=== PATIENT | female | born 1965 | race Caucasian/White ===

== ENCOUNTER 2021-03-26 09:51 | Outpatient (RCR) | payer OTHER, SELFPAY ==
--- NOTE | 2021-03-26 08:20 | PC.NURSE ---
Called and left a voice mail for patient to provide education on antibody infusion treatment for later today. Awaiting patient's call back.
--- NOTE | 2021-03-26 09:22 | PC.NURSE ---
Patient received Bhupinder & Bhupinder vaccine in either August or September.
[2021-03-26 12:03] VITALS: BP 122/64; PULSE 93; RESP 20; TEMP 38; O2SAT 93
[2021-03-26] MEDS: ACETAMINOPHEN 325 MG TABLET 650 MG PO (12:19)
[2021-03-26] MEDS: FAMOTIDINE 20 MG TABLET PO (12:19)
[2021-03-26] MEDS: diphenhydrAMINE HCl CAP 25 MG CAPSULE PO (12:19)
[2021-03-26 13:49] VITALS: BP 133/62; PULSE 91; RESP 18; TEMP 36.6; O2SAT 95
--- NOTE | 2021-03-27 13:59 | PC.NURSE ---
Called patient to follow-up regarding COVID antibody infusion. Patient states they are feeling well and denies any side effects at this time.
== END 2021-03-26 16:35 | disposition home or self-care (01) ==
LOC: AMCINF 09:51
PROVIDERS: PCP Family Medicine; Referring Provider Family Medicine; Visit Provider Internal Medicine Hematology & Oncology
DX: Z23 Encounter for immunization (principal); U07.1 COVID-19
CPT/HCPCS: A9270; J7050; M0243

== ENCOUNTER 2023-10-21 16:13 | Outpatient (CLI) | payer OTHER, SELFPAY ==
--- NOTE | ~2023-10-21 | MM_ITS ---
EXAMINATION: MM screening [facility] BI w jeniffer HISTORY: Screening mammogram TECHNIQUE: Craniocaudal and mediolateral oblique 3-D tomosynthesis images were obtained and synthetic 2-D images were generated. CAD analysis was submitted and interpreted. COMPARISON: August 24, 2018 bilateral screening mammogram BREAST PARENCHYMAL COMPOSITION: There are scattered areas of fibroglandular density. FINDINGS: There is no evidence of suspicious mass, calcification, or architectural distortion to sugg est malignancy in either breast. There has been no suspicious interval change. IMPRESSION: 1. No mammographic evidence of malignancy. 2. Recommend routine screening mammography in one year. BI-RADS Category 1: Negative Reviewed, dictated and finalized at location A.
== END 2023-10-21 16:14 | disposition home or self-care (01) ==
LOC: ANHIMG 16:14
PROVIDERS: PCP Family Medicine; Visit Provider Obstetrics & Gynecology
DX: Z12.31 Encounter for screening mammogram for malignant neoplasm of breast (principal)
CPT/HCPCS: 77063; 77067

== ENCOUNTER 2025-05-24 09:16 | Outpatient (CLI) | payer OTHER, SELFPAY ==
--- NOTE | ~2025-05-24 | XR_ITS ---
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 Technique: 2 views obtained. Findings: The lungs are clear, no effusion. No pneumothorax. Heart is normal size. Mediastinal and hilar contours are within normal limits. Bony thorax no acute abnormality. Impression: No acute cardiopulmonary abnormality. Reviewed, dictated and finalized at location P. NG MACHINE OPERATOR Impression: No acute cardiopulmonary abnormality.
== END 2025-05-24 09:17 | disposition home or self-care (01) ==
LOC: ANHIMG 09:23
DX: R06.89 Other abnormalities of breathing (principal)
CPT/HCPCS: 71046